=== PATIENT | male | born 1955 | race Caucasian/White ===

== ENCOUNTER 2017-09-25 19:03 | Emergency (ER) | payer BC ==
[~2017-09-25] VITALS: Ht 177.8 cm; Wt 85.5 kg
[~2017-09-25 19:03] MED LIST: AMLO-114 PO; ATOR10TA82 PO; HYDC25 PO; LISI-725 PO; METO50TA8 PO
[2017-09-25 19:06] VITALS: TEMP 36.4; Ht 177.8 cm; Wt 85.5 kg
[2017-09-25] MEDS ORDERED: SODIUM CHLORIDE 0.9% 1000ML 1,000 ML IV STA (20:05)
--- NOTE | 2017-09-25 20:11 | EMERGENCY ROOM VISIT NOTE ---
History Report prepared by Minoo: Rasta Landrum Under the Supervision of: Dr. Tushar De Leon D.O. First contact with patient: 19:55 Chief Complaint: SYNCOPE (NEAR SYNCOPE) Stated Complaint: DIZZY, BLACK OUT Nursing Triage Summary: Patient was laying on the floor stretching before dinner when he stood up he had a near syncopal episode where everything went black and had to catch him. States he has an aortic valve replacement, had to have carotid endarterectomy in the past. Denies dizziness now. History of Present Illness The patient is a 62 year old male who presents to the Emergency Room with complaints of intermittent near syncopal episodes that occurred this evening. The patient states that he was on the floor stretching before dinner. He reports that he stood up and felt as if he was going to experience a syncopal episode. The patient states that a chair was located right near him, which caused him to sit down until his symptoms resolved. He reports that he felt flushed and was experiencing diaphoresis and nausea. The patient states that he tried to stretch on the floor for a couple of minutes later. He reports that he stood back up and experienced the same episode. The patient denies similar previous symptoms, loss of consciousness, headache, change in vision, fevers, chest pain, lower extremity weakness, shortness of breath, nausea, vomiting, diarrhea, pain with urination, and melena. The patient states that within the last couple of months Metformin was added to his list of medications. He reports that he had a bicuspid valve replacement in 2008. The patient states that he has a history of hypertension, which he takes medications for. He reports he follows up with Dr. Reese for his history of heart problems. Source of History: patient Onset: this evening Position: other (global) Quality: other (global) Timing: intermittent Modifying Factors (Worsening): other (laying down then standing up) Associated Symptoms: + diaphoresis, + nausea, No LOC, No fevers, No chest pain, No SOB, No vomiting, No diarrhea, No urinary symptoms Review of Systems See HPI for pertinent positives & negatives. A total of 10 systems reviewed and were otherwise negative. Past Medical & Surgical Medical Problems: (1) Diabetes (2) HTN (hypertension) Surgical Problems: (1) H/O bicuspid aortic valve (2) H/O carotid endarterectomy Family History Patient reports no known family medical history. Social History Smoking Status: Never Smoker Marital Status: Housing Status: lives with significant other Current/Historical Medications Scheduled Aspirin (Aspirin Ec), 81 MG PO DAILY Clopidogrel (Plavix), 75 MG PO DAILY Coenzyme Q10 (Ubidecarenone) (Co Q-10), 150 MG PO DAILY Empagliflozin (Jardiance), 1 TAB PO DAILY Ezetimibe (Zetia), 10 MG PO DAILY Fish Oil ([place]-3), 1 CAP PO DAILY Lisinopril (Zestril), 20 MG PO DAILY Metformin Hcl (Glucophage), 1,000 MG PO BID Metoprolol Succ (Toprol Xl) (Toprol-Xl), 0.5 TAB PO BID Multivitamin (Multivitamin), 1 TAB PO DAILY Rosuvastatin Calcium (Crestor), 40 MG PO DAILY Allergies Coded Allergies: No Known Allergies (Unverified , 09/25/17) Physical Exam Vital Signs Date Time Temp Pulse Resp B/P (MAP) Pulse Ox O2 Delivery O2 Flow Rate FiO2 09/25/17 22:50 69 18 145/84 95 Room Air 09/25/17 20:50 79 18 137/79 96 Room Air 85 148/92 78 153/94 09/25/17 20:34 80 09/25/17 20:19 95 Room Air 09/25/17 19:06 36.4 76 16 159/89 95 Room Air Physical Exam GENERAL: Sitting up in bed, alert, well appearing, well nourished, no distress, non-toxic EYE EXAM: normal conjunctiva. PERRL and EOM's intact. OROPHARYNX: no exudate, no erythema, lips, buccal mucosa, and tongue normal and mucous membranes are moist NECK: supple, no nuchal rigidity, no adenopathy, non-tender LUNGS: Clear to auscultation. Normal chest wall mechanics HEART: no murmurs, S1 normal and S2 normal ABDOMEN: abdomen soft, non-tender, normo-active bowel sounds, no masses, no rebound or guarding. BACK: Back is symmetrical on inspection and there is no deformity, no midline tenderness, no CVA tenderness. SKIN: no rashes and no bruising UPPER EXTREMITIES: upper extremities are grossly normal. LOWER EXTREMITIES: No pitting edema. NEURO EXAM: Normal sensorium, cranial nerves II-XII intact, normal speech, no weakness of arms, no weakness of legs. No drift. Finger to nose intact. Gross sensation intact. Ambulates without difficulty. Medical Decision & Procedures ER Provider Diagnostic Interpretation: Radiology results as stated below per my review and the radiologist's interpretation: CHEST ONE VIEW PORTABLE HISTORY: 62 years-old Male EVALUATE ALTERED MENTAL STATUS/WEAKNESS acute altered mental status with weakness COMPARISON: None available TECHNIQUE: Portable AP view of the chest FINDINGS: Cardiomediastinal and hilar silhouettes are within normal limits. Atherosclerosis of the aorta. Prior median sternotomy. No pneumothorax, pleural effusion, focal airspace consolidation or overt pulmonary edema. Remote appearing fractures of the posterolateral right sixth and seventh ribs. Moderate left and severe right shoulder degenerative changes. IMPRESSION: No acute process. The above report was generated using voice recognition software. It may contain grammatical, syntax or spelling errors. Electronically signed by: Horacio Puentes M.D. 09/25/2017 8:51 PM Dictated Date/Time: 09/25/2017 8:50 PM Laboratory Results 09/25/17 20:28 Red Blood Count 4.76, Mean Corpuscular Volume 87.2, Mean Corpuscular Hemoglobin 31.1, Mean Corpuscular Hemoglobin Concent 35.7, Mean Platelet Volume 10.2, Neutrophils (%) (Auto) 64.2, Lymphocytes (%) (Auto) 23.0, Monocytes (%) (Auto) 10.3, Eosinophils (%) (Auto) 1.7, Basophils (%) (Auto) 0.6, Neutrophils # (Auto ) 3.43, Lymphocytes # (Auto) 1.23, Monocytes # (Auto) 0.55, Eosinophils # (Auto ) 0.09, Basophils # (Auto) 0.03 09/25/17 20:28 Test 09/25/17 20:28 09/25/17 20:47 09/25/17 21:30 White Blood Count 5.34 K/uL (4.8-10.8) Red Blood Count 4.76 M/uL (4.7-6.1) Hemoglobin 14.8 g/dL (14.0-18.0) Hematocrit 41.5 % (42-52) Mean Corpuscular Volume 87.2 fL (80-100) Mean Corpuscular Hemoglobin 31.1 pg (25-34) Mean Corpuscular Hemoglobin Concent 35.7 g/dl (32-36) Platelet Count 146 K/uL (130-400) Mean Platelet Volume 10.2 fL (7.4-10.4) Neutrophils (%) (Auto) 64.2 % Lymphocytes (%) (Auto) 23.0 % Monocytes (%) (Auto) 10.3 % Eosinophils (%) (Auto) 1.7 % Basophils (%) (Auto) 0.6 % Neutrophils # (Auto) 3.43 K/uL (1.4-6.5) Lymphocytes # (Auto) 1.23 K/uL (1.2-3.4) Monocytes # (Auto) 0.55 K/uL (0.11-0.59) Eosinophils # (Auto) 0.09 K/uL (0-0.5) Basophils # (Auto) 0.03 K/uL (0-0.2) RDW Standard Deviation 43.5 fL (36.4-46.3) RDW Coefficient of Variation 13.8 % (11.5-14.5) Immature Granulocyte % (Auto) 0.2 % Immature Granulocyte # (Auto) 0.01 K/uL (0.00-0.02) Prothrombin Time 10.4 SECONDS (9.0-12.0) Prothromb Time International Ratio 1.0 (0.9-1.1) Activated Partial Thromboplast Time 26.1 SECONDS (21.0-31.0) Partial Thromboplastin Ratio 1.0 D-Dimer 370 ug/L FEU (0-500) Anion Gap 9.0 mmol/L (3-11) Est Creatinine Clear Calc Drug Dose 84.3 ml/min Estimated GFR () 99.7 Estimated GFR (Non- 86.1 BUN/Creatinine Ratio 20.5 (10-20) Calcium Level 9.5 mg/dl (8.5-10.1) Total Bilirubin 0.7 mg/dl (0.2-1) Direct Bilirubin 0.2 mg/dl (0-0.2) Aspartate Amino Transf (AST/SGOT) 31 U/L (15-37) Alanine Aminotransferase (ALT/SGPT) 50 U/L (12-78) Alkaline Phosphatase 73 U/L (45-117) Troponin I < 0.015 ng/ml (0-0.045) Total Protein 8.0 gm/dl (6.4-8.2) Albumin 4.2 gm/dl (3.4-5.0) Thyroid Stimulating Hormone (TSH) 2.060 uIu/ml (0.300-4.500) Bedside Glucose 109 mg/dl (70-99) Urine Color YELLOW Urine Appearance CLEAR (CLEAR) Urine pH 5.0 (4.5-7.5) Urine Specific [place] 1.030 (1.000-1.030) Urine Protein NEG (NEG) Urine Glucose (UA) 3+ (NEG) Urine Ketones NEG (NEG) Urine Occult Blood NEG (NEG) Urine Nitrite NEG (NEG) Urine Bilirubin NEG (NEG) Urine Urobilinogen NEG (NEG) Urine Leukocyte Esterase NEG (NEG) Laboratory results per my review. Medications Administered Medications (Trade) Dose Ordered Sig/Jason Route Start Time Stop Time Status Last Admin Dose Admin Sodium Chloride 1,000 ml @ 999 mls/hr Q1H1M STAT IV 09/25/17 20:05 09/25/17 21:05 DC 09/25/17 20:53 999 MLS/HR ECG Per My Interpretation Indication: syncope Rate (beats per minute): 79 Rhythm: sinus rhythm Findings: PVC, RBBB, other (Normal axis) Comparison ECG Date: no prior available ED Course ED COURSE: Vital signs were reviewed and showed normal. The patients medical record was reviewed The above diagnostic studies were performed and reviewed. ED treatments and interventions as stated above. 1955: The patient was evaluated in room C01A. A complete history and physical examination was performed. 2004: Ordered Sodium Chloride 1000 ml @ 999 mls/hr IV. 2225: I reevaluated the patient and updated him on his results. 2238: I discussed the patients case with Dr. Roman. [facility] Hospitalist. He reports the patient is able to go home and follow up. 2245: Upon reevaluation, the patient is doing well. I discussed my findings with the patient and he understands and agrees with the treatment plan. Based on the patients age, coexisting illnesses, exam and lab findings the decision to treat as an outpatient was made. The patient remained stable while under my care. The patient appeared well at the time of discharge. The patient will be evaluated for further management. Medical Decision Differential diagnosis includes etiologies such as vasovagal event, infection, hypoglycemia, electrolyte abnormalities, cardiac sources, intracerebral event, toxicologic, neurologic, as well as others were entertained. Patient is a 62-year-old male who presents the ER as he was lying flat on the floor stretching. When he went to stand up he nearly blacked out. He does have a history of an aortic valve replacement. He has no other complaints. Denies any chest pain or shortness of breath. CBC along with BMP, LFTs, bilirubin and troponin were negative. TSH was normal. UA was unremarkable. D- dimer was normal. Patient did note he was flushed and sweaty when he almost passed out. Shortly thereafter he repeated the same steps and almost passed out again. EKG was unremarkable. Chest x-ray unremarkable as well. I discussed my findings with cardiology. They recommend following up as an outpatient. I do believe he is stable enough to be discharged. He is otherwise completely will back to baseline. No new medications. Patient was given fluids and discharged follow-up with PCP. Discussed with Pt concerning signs and symptoms to watch out for. Pt was instructed to follow up with their PCP and discussed with the patient their option to return to the ED at anytime for persistent or worsening symptoms. The appropriate anticipatory guidance and out-patient management, including indications for return to the emergency department, were explained at length to the patient and understood. Medication Reconcilliation Current Medication List: was personally reviewed by me Blood Pressure Screening Patient's blood pressure: Normal blood pressure Consults Time Called: 2208 Consulting Physician: Dr. Roman, [facility] Cardiology Returned Call: [phone] I discussed the patients case with Dr. Roman. [facility] Hospitalist. He reports the patient is able to go home and follow up. Impression Primary Impression: Near syncope Scribe Attestation The scribe's documentation has been prepared under my direction and personally reviewed by me in its entirety. I confirm that the note above accurately reflects all work, treatment, procedures, and medical decision making performed by me. Departure Information Dispostion Home / Self-Care Referrals No Doctor, Assigned (PCP) Rob Reese M.D. Forms HOME CARE DOCUMENTATION FORM, IMPORTANT VISIT INFORMATION Patient Instructions ED Near Syncope Unkn, My [facility] Additional Instructions Please follow up with your primary care doctor with in the next 24 hours. Any worsening of your symptoms, please return to the ED immediately. This includes any fevers greater than 100.4, worsening pain, chest pain, shortness breath, persistent nausea, vomiting, unable to eat or drink, or any other concerning signs or symptoms from your standpoint. 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 Please refrain from laying on the floor and changing positions quickly.
[2017-09-25 20:19] VITALS: O2SAT 95
--- NOTE | 2017-09-25 20:53 | DIAGNOSTIC IMAGING REPORT ---
CHEST ONE VIEW PORTABLE HISTORY: 62 years-old Male EVALUATE ALTERED MENTAL STATUS/WEAKNESS acute altered mental status with weakness COMPARISON: None available TECHNIQUE: Portable AP view of the chest FINDINGS: Cardiomediastinal and hilar silhouettes are within normal limits. Atherosclerosis of the aorta. Prior median sternotomy. No pneumothorax, pleural effusion, focal airspace consolidation or overt pulmonary edema. Remote appearing fractures of the posterolateral right sixth and seventh ribs. Moderate left and severe right shoulder degenerative changes. IMPRESSION: No acute process. The above report was generated using voice recognition software. It may contain grammatical, syntax or spelling errors. Electronically signed by: Horacio Puentes M.D. 09/25/2017 8:51 PM Dictated Date/Time: 09/25/2017 8:50 PM
[2017-09-25 20:55] LABS: BASO % 0.6 %; BASO ABS # 0.03 K/uL (0-0.2); EOS % 1.7 %; EOS ABS # 0.09 K/uL (0-0.5); HEMATOCRIT 41.5 % (42-52); HEMOGLOBIN 14.8 g/dL (14.0-18.0); IG# 0.01 K/uL (0.00-0.02); LYMPH ABS # 1.23 K/uL (1.2-3.4); MEAN CELL VOLUME 87.2 fL (80-100); MEAN CORPUSCULAR HEMOGLOBIN 31.1 pg (25-34); MEAN CORPUSCULAR HGB CONC 35.7 g/dl (32-36); MEAN PLATELET VOLUME 10.2 fL (7.4-10.4); MONO % 10.3 %; MONO ABS # 0.55 K/uL (0.11-0.59); NEUT % 64.2 %; NEUT ABS # 3.43 K/uL (1.4-6.5); PLATELET COUNT 146 K/uL (130-400); RED CELL DISTRIBUTION WIDTH CV 13.8 % (11.5-14.5); RED CELL DISTRIBUTION WIDTH SD 43.5 fL (36.4-46.3); WHITE BLOOD COUNT 5.34 K/uL (4.8-10.8)
[2017-09-25] MEDS ORDERED: CLOP1TAB15 PO (21:00)
[2017-09-25] MEDS ORDERED: MULT-506 PO (21:00)
[2017-09-25] MEDS ORDERED: ASPI81TA28 PO (21:00)
[2017-09-25] MEDS ORDERED: LISI-725 PO (21:00)
[2017-09-25] MEDS ORDERED: METO50TA8 PO (21:00)
[2017-09-25] MEDS ORDERED: EMPA1TAB PO (21:00)
[2017-09-25] MEDS ORDERED: COEN150C PO (21:00)
[2017-09-25] MEDS ORDERED: OMEG10007 PO (21:00)
[2017-09-25] MEDS ORDERED: EZET10TA63 PO (21:00)
[2017-09-25] MEDS ORDERED: ROSU40TA PO (21:00)
[2017-09-25] MEDS ORDERED: GLC/500 PO (21:00)
[2017-09-25 21:01] LABS: PTT PATIENT 26.1 SECONDS (21.0-31.0)
[2017-09-25 21:11] LABS: ALBUMIN 4.2 gm/dl (3.4-5.0); ALT/SGPT 50 U/L (12-78); BLOOD UREA NITROGEN 20 mg/dl (7-18); CALCIUM 9.5 mg/dl (8.5-10.1); CARBON DIOXIDE 24 mmol/L (21-32); CREATININE 0.95 mg/dl (0.60-1.40); GLUCOSE 98 mg/dl (70-99); POTASSIUM 3.7 mmol/L (3.5-5.1); SODIUM 138 mmol/L (136-145)
[2017-09-25 21:21] LABS: ALKALINE PHOSPHATASE 73 U/L (45-117); AST/SGOT 31 U/L (15-37)
[2017-09-25 22:50] VITALS: BP 145/84; PULSE 69; O2SAT 95
== END 2017-09-25 23:10 | disposition home or self-care (01) ==
LOC: C.EDB 19:04 → C.EDC 23:10
DX: R61 Generalized hyperhidrosis (principal); R11.0 Nausea; E11.9 Type 2 diabetes mellitus without complications; I10 Essential (primary) hypertension; Z79.82 Long term (current) use of aspirin; Z79.84 Long term (current) use of oral hypoglycemic drugs; Z95.2 Presence of prosthetic heart valve; R55 Syncope and collapse

== ENCOUNTER 2022-06-29 22:54 | Observation (INO) ==
--- NOTE | 2022-06-29 23:22 | Emergency Department Note ---
Impression & Plan Facial paresthesia, Paresthesia of left arm, Left-sided chest pain, Elevated d- dimer ED Provider Note Name: FOUZIA DEJESUS Age: 67 Sex: M Arrives Via: Walk-In Informant: Patient ED Provider: Terell Garcia MD Chief Complaint: Chest pain Impression: As per impressions above Medical Decision Making: Pleasant 67-year-old gentleman with a history of hypertension, diabetes, TIA, aortic valve repair, CEA arrives for evaluation of 2 days of not feeling right. Increasing left chest pain following plowing this morning. He also notes that he is been having left facial tingling radiating down into his left arm. He has no neurologic deficits on examination his NIH score is 0. No clear timeline specific of last known well and without other neuro findings I do not feel he is a TNKase candidate and is clearly not a large vessel occlusion. He does have left-sided chest pain however an EKG is all right it seems more musculoskeletal as it is worse with movement. Initial troponin is within normal limits. Chest x-ray looks all right. A D-dimer was also obtained given the was having unusual symptoms. D-dimer is mildly elevated thus a CTA was obtained. He had a CT head that is negative. He had a CTA of the chest that is negative as well. Otherwise labs and work-up are unremarkable. He still has some mild tingling of the left face and down his arm. With his history he will need a further work-up including stroke eval. I do not think that he needs heparinization at this time. Hospitalist was consulted for further management. Patient took aspirin prior to arrival. Prior Medical Record and Triage/Nursing Notes reviewed by Me Additional history obtained from chart Differentials:Cardiac ischemia, aortic dissection, pulmonary embolism, pneumothorax, pneumonia, pericarditis, myocarditis, esophageal rupture, GERD, cholecystitis, pancreatitis, musculoskeletal, as well as other pathologies. Vital Signs: reviewed and remarkable for HTN Labs:Reviewed and remarkable for elevated dimer Imaging:X ray results are stated below per my interpretation: Chest: 1 view: No infiltrate, no effusion, normal cardiac border. CT angio of the chest no acute findings as per radiology. CT head no acute findings as per radiology EKG:Per My Interpretation: Indication Chest Pain: NSR 79 bpm, qtc 454. No Ectopy. No Ischemia. Compared to EKG 01/01/22, no significant changes. Cardiac/Tele Monitoring: Cardiac Monitoring: An Order was placed for continuous cardiac monitoring. The monitor shows a rate of 70 with a normal sinus rhythm. Consults:Dr Balaji HEAD Hospitalist Plan: Disposition:Hospitalization. Condition: Good History of Present Illness:67-year-old gentleman arrives for evaluation of chest pain. Patient notes last 2 days he just has not quite felt himself and a bit more tired than usual. He then was plowing snow all morning today and states he just was not feeling normal. He attributed it to just being tired. This evening he started developing pressure-like pain over the left chest. This was associated with increasing tingling over the left face and down to his left arm into the forearm. He denies any pressure or pain in his face or arm. Denies any nausea, vomiting, syncope, weakness, slurred speech, shortness of breath, abdominal pain, back pain, fevers, chills or any other concerning signs or symptoms. He is not having any back pain or tearing pain. He has had no recent swelling of his legs or calf pain. No prolonged car trips. Denies a history of CAD though his father did have a heart attack. Patient's never had any cardiac stenting but has had CEA and open heart surg for aortic valve repair. Patient took 324 mg aspirin x2 about 1 hour ago. He notes that his symptoms have mostly resolved by the time he gets here. Nothing seemed to make better or worse. ROS: See above HPI for pertinent positives & negatives. A total of 10 systems reviewed and were otherwise negative. Past Medical History:Diabetes, hypertension, dyslipidemia, carotid narrowing, TIA Past Surgical History:Open heart surgery for aortic repair, carotid endarterectomy Family History:Father had AL, see below Social History:See Below Home Medications:See Below Allergies:nkda Vitals:Blood Pressure: 194/101, Pulse 83, RR 20, T 36.5C, O2 96% on RA Physical Exam: GENERAL: Patient is anxious appearing and in minimal distress. EYES: No scleral icterus, unremarkable pupils. ENT: Mucous membranes moist, no nasal congestion. NECK: No masses appreciated, nomeningismus, trachea is midline. RESPIRATORY: No dyspnea. Clear to auscultation and equal bilaterally. No wheeze, no rhonchi. CARDIOVASCULAR: Regular rate and rhythm.No murmurs, rubs, gallops appreciated. GASTROINTESTINAL: Abdomen soft, non-tender, no peritonitis.Bowel sounds positive.No masses appreciated. BACK: No midline tenderness, no CVA tenderness EXTREMITIES: Normal motion all extremities, no cyanosis, no edema. NEUROLOGIC: Alert and oriented, no acute motor or sensory deficits, no focal wea kness, cranial nerves grossly intact. SKIN: No rash, no jaundice, no diaphoresis. PSYCH: Appropriate GCS: 15 ED Course: Times/Reassessments: improving HR, stable Terell Garcia MD Past Med/Surg History Medical History Diabetes Dyslipidemia HTN (hypertension) Surgical History H/O aortic valve replacement Social History Smoking Status: Never smoker Hx Alcohol Use: Yes Hx Substance Use: No Preferred Language: Welsh Communication Ability: Effective Health Care Manager Required: No Beliefs That Will Affect Care: None Current Living Situation: Spouse Feels Safe at Home: Yes Safety Concerns: Feels Safe At This Time Allergies Allergies Allergy/AdvReac Type Severity Reaction Status Date / Time bee venom protein (honey bee) Allergy Severe Anaphylaxis Verified 06/30/22 00:20 shellfish derived Allergy Severe Gastrointestinal Verified 06/30/22 00:20 Upset Home Meds Home Medications Medication Instructions Recorded Confirmed clopidogrel 75 mg tablet 75 mg PO DAILY #0 tabs 09/25/17 06/30/22 ezetimibe 10 mg tablet 10 mg PO DAILY #0 tabs 09/25/17 06/30/22 lisinopril 20 mg tablet 20 mg PO BID #0 tabs 09/25/17 06/30/22 metformin 500 mg tablet 1,000 mg PO BID #0 tabs 09/25/17 06/30/22 multivitamin 1 tab PO DAILY #0 tabs 09/25/17 06/30/22 rosuvastatin 20 mg tablet 20 mg PO DAILY #0 tabs 09/25/17 06/30/22 amlodipine 5 mg tablet 5 mg PO BID 01/01/22 06/30/22 metoprolol tartrate 50 mg tablet 50 mg PO BID 01/01/22 06/30/22 aspirin 81 mg tablet,delayed 81 mg PO DAILY 06/30/22 06/30/22 release omega-3s 300 xd-kqe-fuw-other 1 cap PO DAILY 06/30/22 06/30/22 [id number] oil 1,000 mg capsule ([employer]-3 Fish Oil) Results & Data (ED) Vital Signs Vital Signs - 24 hr 06/29/22 22:56 06/30/22 02:54 Temperature 36.5 C Temperature Source Temporal Artery Scan Pulse Rate 83 Pulse Rate [Left] 68 Respiratory Rate 20 16 Respiratory Effort / Characteristics Non-Labored Spontaneous Non-Labored Respiratory Depth Normal Normal Blood Pressure 194/101 H Blood Pressure [Right Arm] 178/99 H Blood Pressure Mean 132 Blood Pressure Mean [Right Arm] 125 Pulse Oximetry 96 94 Oxygen Delivery Method Room Air Sepsis New/Unexplained Change in Mental Status N/A Sepsis Action Taken by Nursing No Action Required Laboratory Data Result diagrams: 06/29/22 23:10 06/29/22 23:10 Lab Results 06/29/22 06/29/22 06/29/22 Range/Units 23:10 23:10 23:10 WBC 11.42 H (4.8-10.8) K/ul RBC 4.81 (4.63-6.08) M/uL Hgb 15.0 (14.0-18.0) g/dl Hct 42.5 (40.1-51.0) % MCV 88.4 (80.0-100.0) fL MCH 31.2 (25.0-34.0) pg MCHC 35.3 (32.0-36.0) g/dL RDW Std Deviation 41.8 (36.4-46.3) fL RDW Coeff of Daryn 12.9 (11.5-14.5) % Plt Count 157 (130-400) K/uL MPV 10.0 (9.4-12.4) fL Immature Gran % (Auto) 0.4 % Neut % (Auto) 74.8 % Lymph % (Auto) 15.2 % [place] % (Auto) 7.5 % Eos % (Auto) 1.7 % Baso % (Auto) 0.4 % Neut # (Auto) 8.54 H (1.4-6.5) K/uL Lymph # (Auto) 1.74 (1.2-3.4) K/uL [place] # (Auto) 0.86 H (0.24-0.82) K/uL Eos # (Auto) 0.19 (0-0.50) K/uL Baso # (Auto) 0.05 (0-0.2) K/uL Immature Gran # (Auto) 0.04 H (0.00-0.02) K/uL D-Dimer 550 H* (0-500) ug/L FEU Sodium 138 (136-145) mmol/L Potassium 4.2 (3.5-5.1) mmol/L Chloride 104 (98-107) mmol/L Carbon Dioxide 26 (21-32) mmol/L Anion Gap 8 (3-11) BUN 27 H (6-23) mg/dl Creatinine 1.05 (0.6-1.4) mg/dl Est Cr Clr Drug Dosing 78.9 ml/min Est GFR ( Amer) 85.3 ml/min Est GFR (Non-Af Amer) 73.6 ml/min BUN/Creatinine Ratio 25.7 H (10-20) Glucose 106 H (70-99(Fasting)) mg/dl Calcium 9.5 (8.5-10.1) mg/dl Magnesium 2.0 (1.7-2.4) mg/dl Total Bilirubin 0.5 (0.2-1.0) mg/dl Direct Bilirubin 0.1 (0-0.2) mg/dl AST 22 (13-39) U/L ALT 32 (7-52) U/L Alkaline Phosphatase 71 (34-104) U/L Troponin I High Sens 9.3 (0-20) pg/ml Total Protein 7.8 (6.0-8.3) gm/dl Albumin 4.6 (3.4-5.0) gm/dl Administered Medications Discontinued Medications Sodium Chloride (Nss) 500 mls @ 999 mls/hr IV .Q31M ONE Stop: 06/30/22 01:06 Last Admin: 06/30/22 07:03 Dose: Not Given Documented By: ANDREA Ioversol (Optiray 320 500ml) 115 ml IV ONCE ONE Stop: 06/30/22 01:08 Last Admin: 06/30/22 01:08 Dose: 115 ml Documented By: [facility] Imaging Data Radiologist's Impression: Head CT 06/29/22 23:18 CT SCAN OF THE BRAIN WITHOUT IV CONTRAST CLINICAL HISTORY: Transient ischemic attack. Left-sided facial numbness. Dizziness. COMPARISON STUDY: CT of the brain dated 11/26/2021. TECHNIQUE: Unenhanced axial CT scan of the brain is performed from the vertex to the skull base. A dose lowering technique was utilized adhering to the principles of ALARA. CT DOSE: 614.27 mGy.cm FINDINGS: Brain parenchyma: A focus of high right parietal encephalomalacia is unchanged and consistent with a remote insult. There is age-related involutional change noting mild subcortical and periventricular microangiopathic disease. There is no hemorrhage, mass effect, or evidence of acute territorial ischemia by CT criteria. Rojas-white matter differentiation is preserved. No extra-axial fluid collection is seen. Ventricles, sulci, cisterns: Prominent secondary to involutional change. Intracranial vasculature: There is atherosclerotic calcification of the cavernous carotid vertebral arteries. Calvarium: Unremarkable. Soft tissues: A 2 cm lipoma is noted in the right suboccipital musculature. Sinuses and mastoids: The visualized paranasal sinuses are clear. The mastoid air cells are well pneumatized. Orbits: The bony orbits are grossly intact. There are bilateral ocular lens implants. IMPRESSION: There is no hemorrhage, mass effect, or evidence of acute ter ritorial ischemia by CT criteria. ACT 112: Negative or not required by law. Electronically signed by: Chapito Webb M.D. 06/30/2022 12:19 AM Chest X-Ray 06/29/22 23:19 SINGLE VIEW CHEST CLINICAL HISTORY: Left-sided chest pain. FINDINGS: An AP, portable, upright chest radiograph is compared to study dated 09/25/2017. The patient is status post midline sternotomy. The heart is enlarged noting atherosclerotic calcification of the thoracic aorta. The pulmonary vasculature is noncongested. There is mild bibasilar scarring/atelectasis. The lungs and pleural spaces are otherwise clear. No pneumothorax is seen. The skeletal structures are osteopenic. There are healed right-sided rib fractures. Advanced arthritic change is noted in the shoulders. IMPRESSION: Mild cardiomegaly with no active disease in the chest. ACT 112: Negative or not required by law. Electronically signed by: Chapito Webb M.D. 06/30/2022 12:26 AM Discharge Plan Visit Data Chief Complaint: Cardiac Assessment Stated Complaint: CHEST DISCOMFORT, TINGLING FACE ED Provider: Terell Garcia Discharge Problem: Facial paresthesia, Paresthesia of left arm, Left-sided chest pain, Elevated d- dimer Patient Disposition: Admitted As Inpatient Discharge Instructions Interventions: ED Discharge Assessment Last Done: 06/30/22 05:47
[2022-06-30] LABS: Basophils # (auto) 0.05 K/uL (0-0.2); Basophils % (auto) 0.4 %; Eosinophils # (auto) 0.19 K/uL (0-0.50); Eosinophils % (auto) 1.7 %; Hematocrit (blood only) 42.5 % (40.1-51.0); Immature Granulocytes # (auto) 0.04 K/uL (0.00-0.02); Immature Granulocytes % (auto) 0.4 %; Lymphocytes # (auto) 1.74 K/uL (1.2-3.4); Lymphocytes % (auto) 15.2 %; Mean Corpuscular Hemoglobin 31.2 pg (25.0-34.0); Mean Corpuscular Hgb Conc 35.3 g/dL (32.0-36.0); Mean Corpuscular Volume 88.4 fL (80.0-100.0); Monocytes # (auto) 0.86 K/uL (0.24-0.82); Monocytes % (auto) 7.5 %; Neutrophils # (auto) 8.54 K/uL (1.4-6.5); Neutrophils % (auto) 74.8 %; Platelet Count 157 K/uL (130-400); RDW Coefficient of Variation 12.9 % (11.5-14.5); RDW Standard Deviation 41.8 fL (36.4-46.3); Red Blood Count 4.81 M/uL (4.63-6.08); White Blood Count 11.42 K/ul (4.8-10.8)
[2022-06-30 00:17] LABS: D Dimer 550 ug/L FEU (0-500)
--- NOTE | 2022-06-30 00:21 | CT Scan Report ---
CT SCAN OF THE BRAIN WITHOUT IV CONTRAST CLINICAL HISTORY: Transient ischemic attack. Left-sided facial numbness. Dizziness. COMPARISON STUDY: CT of the brain dated 11/26/2021. TECHNIQUE: Unenhanced axial CT scan of the brain is performed from the vertex to the skull base. A do se lowering technique was utilized adhering to the principles of ALARA. CT DOSE: 614.27 mGy.cm FINDINGS: Brain parenchyma: A focus of high right parietal encephalomalacia is unchanged and consistent with a remote insult. There is age-related involutional change noting mild subcortical and periventricular m icroangiopathic disease. There is no hemorrhage, mass effect, or evidence of acute territorial ischem ia by CT criteria. Rojas-white matter differentiation is preserved. No extra-axial fluid collection is seen. Ventricles, sulci, cisterns: Prominent secondary to involutional change. Intracranial vasculature: There is atherosclerotic calcification of the cavernous carotid vertebral a rteries. Calvarium: Unremarkable. Soft tissues: A 2 cm lipoma is noted in the right suboccipital musculature. Sinuses and mastoids: The visualized paranasal sinuses are clear. The mastoid air cells are well pneu matized. Orbits: The bony orbits are grossly intact. There are bilateral ocular lens implants. IMPRESSION: There is no hemorrhage, mass effect, or evidence of acute territorial ischemia by CT jessica bryant. ACT 112: Negative or not required by law. Electronically signed by: Chapito Webb M.D. 06/30/2022 12:19 AM
[2022-06-30 00:26] LABS: Troponin I High Sensitivity 9.3 pg/ml (0-20)
[2022-06-30 00:27] LABS: Albumin Level 4.6 gm/dl (3.4-5.0); BUN Creatinine Ratio 25.7 (10-20); Bilirubin Direct 0.1 mg/dl (0-0.2); Bilirubin,Total 0.5 mg/dl (0.2-1.0); Calcium 9.5 mg/dl (8.5-10.1); Creatinine Clr Calc Pharmacy 78.9 ml/min; Est GFR (African American) 85.3 ml/min; Est GFR (Non-African American) 73.6 ml/min; Potassium 4.2 mmol/L (3.5-5.1); Total Protein 7.8 gm/dl (6.0-8.3)
--- NOTE | 2022-06-30 00:27 | XRay Report ---
SINGLE VIEW CHEST CLINICAL HISTORY: Left-sided chest pain. FINDINGS: An AP, portable, upright chest radiograph is compared to study dated 09/25/2017. The patient is status post midline sternotomy. The heart is enlarged noting atherosclerotic calcification of the thoracic aorta. The pulmonary vasculature is noncongested. There is mild bibasilar scarring/atelecta sis. The lungs and pleural spaces are otherwise clear. No pneumothorax is seen. The skeletal structur es are osteopenic. There are healed right-sided rib fractures. Advanced arthritic change is noted in the shoulders. IMPRESSION: Mild cardiomegaly with no active disease in the chest. ACT 112: Negative or not required by law. Electronically signed by: Chapito Webb M.D. 06/30/2022 12:26 AM
[2022-06-30] MEDS ORDERED: SODIUM CHLORIDE 0.9% 500 ML IV ONE (00:36)
[2022-06-30] MEDS ORDERED: OPTIRAY 320 500ml IV ONE (01:07)
--- NOTE | 2022-06-30 03:42 | History & Physical Report ---
Date of Service June 30, 2022 Assessment & Plan (1) TIA (transient ischemic attack): Plan: Past history TIA Transient left-sided numbness Hypertension possibly elevated secondary to above Chest pain possibly from elevated BP Doubt ACS given history hx nonocclusive CAD hx PVD status post surgery bicuspid aortic valve status post bioprosthetic AVR hyperlipidemia, on statin Rx DM2 on oral medications, well-controlled as of recent hemoglobin A1c of 6.2 last August 2021 DM2 on oral medications sarcoidosis as per records OBS PCU given elevated BP and chest pain complaints Continue antiplatelet Rx for secondary stroke prevention MRI, TTE, carotid Dopplers for TIA work-up Permissive hypertension until acute stroke ruled out Neurology consult pending MRI results Follow troponin Cardiology consult Re: Chest pain, history nonocclusive CAD (Patient known to [facility].) Update lipid profile and hemoglobin A1c Basal bolus insulin, ISS BG goal 1 10-1 40, carb count coverage, update hemoglobin A1c DVT prophylaxis per Lovenox subcu Full code Text document was generated using [employer] voice recognition software. It may contain grammatical or spelling errors. Kindly contact undersigned for clarification of any documentation item in question. History of Present Illness Chief Complaint: Transient chest pain, left-sided numbness Primary Care Provider: Dr. Benavidez History obtained from patient and records. Medical history significant for nonocclusive CAD, PVD status post surgery, history TIA, bicuspid aortic valve status post bioprosthetic AVR, hypertension, hyperlipidemia, DM2 on oral medications, sarcoidosis. Patient not feeling well the last few days. Patient was watching television last night when he experienced achy transient left-sided chest pain without radiation and no other symptoms. Patient later noted tingling numbness on the face and left arm. More profound numbness on the left side from TIA attack in 2007 prompting left carotid endarterectomy at [facility] [place]. Patient denies headache symptoms. No unusual neck pain. Patient compliant with medications. No unusual stress except for plowing snow yesterday. Patient does not take blood pressure at home. Patient took extra aspirin at home prior to ER evaluation. Highest SBP at the ER 190s. Patient currently comfortable. 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 Allergies Allergy/AdvReac Type Severity Reaction Status Date / Time bee venom protein (honey bee) Allergy Severe Anaphylaxis Verified 06/30/22 00:20 shellfish derived Allergy Severe Gastrointestinal Verified 06/30/22 00:20 Upset Home Medications Medication Instructions Recorded Confirmed Type clopidogrel 75 mg tablet 75 mg PO DAILY #0 tabs 09/25/17 06/30/22 History ezetimibe 10 mg tablet 10 mg PO DAILY #0 tabs 09/25/17 06/30/22 History lisinopril 20 mg tablet 20 mg PO BID #0 tabs 09/25/17 06/30/22 History metformin 500 mg tablet 1,000 mg PO BID #0 tabs 09/25/17 06/30/22 History multivitamin 1 tab PO DAILY #0 tabs 09/25/17 06/30/22 History rosuvastatin 20 mg tablet 20 mg PO DAILY #0 tabs 09/25/17 06/30/22 History amlodipine 5 mg tablet 5 mg PO BID 01/01/22 06/30/22 History metoprolol tartrate 50 mg tablet 50 mg PO BID 01/01/22 06/30/22 History aspirin 81 mg tablet,delayed 81 mg PO DAILY 06/30/22 06/30/22 History release omega-3s 300 hw-imc-vcr-other 1 cap PO DAILY 06/30/22 06/30/22 History [id number] oil 1,000 mg capsule ([place]-3 Fish Oil) Past Med/Surg History Medical History Diabetes Dyslipidemia HTN (hypertension) Surgical History H/O aortic valve replacement Social History Smoking Status: Never smoker Hx Alcohol Use: Yes Hx Substance Use: No Preferred Language: Austrian Communication Ability: Effective Lookback Coordinator Required: No Beliefs That Will Affect Care: None Current Living Situation: Spouse Feels Safe at Home: Yes Safety Concerns: Feels Safe At This Time Review of Systems Review of Systems: As per HPI, all other systems reviewed and negative Physical Exam Physical Exam: GENERAL: Comfortable, pleasant, no respiratory distress SKIN: Hypopigmented patches noted noted on the upper extremities, normal color, warm HEENT: [place] palpebral conjunctivae, no ptosis, minimal upper lip asymmetry, moist buccal mucosa NECK : Supple, no tenderness CHEST : CTA, no tenderness HEART : RRR, systolic murmur over precordium ABDOMEN: Some distention, nontender EXTREMITIES : No LE swelling, no LE tenderness, no other conspicuous deformities noted NEUROLOGIC : Coherent, no facial asymmetry, minimal upper lip asymmetry, gait and stance not assessed Results & Data Results & Data ([facility]) Vital Signs (Past 12 Hours) Vital Signs Temp Pulse Resp BP Pulse Ox O2 Del Method 06/29/22 22:56 36.5 C 83 20 194/101 H 96 Room Air Laboratory Results Laboratory Results WBC 11.42 K/ul (4.8-10.8) H 06/29/22 23:10 RBC 4.81 M/uL (4.63-6.08) 06/29/22 23:10 Hgb 15.0 g/dl (14.0-18.0) 06/29/22 23:10 Hct 42.5 % (40.1-51.0) 06/29/22 23:10 MCV 88.4 fL (80.0-100.0) 06/29/22 23:10 MCH 31.2 pg (25.0-34.0) 06/29/22 23:10 MCHC 35.3 g/dL (32.0-36.0) 06/29/22 23:10 RDW Std Deviation 41.8 fL (36.4-46.3) 06/29/22 23:10 RDW Coeff of Daryn 12.9 % (11.5-14.5) 06/29/22 23:10 Plt Count 157 K/uL (130-400) 06/29/22 23:10 MPV 10.0 fL (9.4-12.4) 06/29/22 23:10 Immature Gran % (Auto) 0.4 % 06/29/22 23:10 Neut % (Auto) 74.8 % 06/29/22 23:10 Lymph % (Auto) 15.2 % 06/29/22 23:10 [place] % (Auto) 7.5 % 06/29/22 23:10 Eos % (Auto) 1.7 % 06/29/22 23:10 Baso % (Auto) 0.4 % 06/29/22 23:10 Neut # (Auto) 8.54 K/uL (1.4-6.5) H 06/29/22 23:10 Lymph # (Auto) 1.74 K/uL (1.2-3.4) 06/29/22 23:10 [place] # (Auto) 0.86 K/uL (0.24-0.82) H 06/29/22 23:10 Eos # (Auto) 0.19 K/uL (0-0.50) 06/29/22 23:10 Baso # (Auto) 0.05 K/uL (0-0.2) 06/29/22 23:10 Immature Gran # (Auto) 0.04 K/uL (0.00-0.02) H 06/29/22 23:10 D-Dimer 550 ug/L FEU (0-500) H* 06/29/22 23:10 Sodium 138 mmol/L (136-145) 06/29/22 23:10 Potassium 4.2 mmol/L (3.5-5.1) 06/29/22 23:10 Chloride 104 mmol/L (98-107) 06/29/22 23:10 Carbon Dioxide 26 mmol/L (21-32) 06/29/22 23:10 Anion Gap 8 (3-11) 06/29/22 23:10 BUN 27 mg/dl (6-23) H 06/29/22 23:10 Creatinine 1.05 mg/dl (0.6-1.4) 06/29/22 23:10 Est Cr Clr Drug Dosing 78.9 ml/min 06/29/22 23:10 Est GFR ( Amer) 85.3 ml/min 06/29/22 23:10 Est GFR (Non-Af Amer) 73.6 ml/min 06/29/22 23:10 BUN/Creatinine Ratio 25.7 (10-20) H 06/29/22 23:10 Glucose 106 mg/dl (70-99(Fasting)) H 06/29/22 23:10 Calcium 9.5 mg/dl (8.5-10.1) 06/29/22 23:10 Magnesium 2.0 mg/dl (1.7-2.4) 06/29/22 23:10 Total Bilirubin 0.5 mg/dl (0.2-1.0) 06/29/22 23:10 Direct Bilirubin 0.1 mg/dl (0-0.2) 06/29/22 23:10 AST 22 U/L (13-39) 06/29/22 23:10 ALT 32 U/L (7-52) 06/29/22 23:10 Alkaline Phosphatase 71 U/L (34-104) 06/29/22 23:10 Troponin I High Sens 9.3 pg/ml (0-20) 06/29/22 23:10 Total Protein 7.8 gm/dl (6.0-8.3) 06/29/22 23:10 Albumin 4.6 gm/dl (3.4-5.0) 06/29/22 23:[address] 06/29/22 23:18 CT SCAN OF THE BRAIN WITHOUT IV CONTRAST CLINICAL HISTORY: Transient ischemic attack. Left-sided facial numbness. Dizziness. COMPARISON STUDY: CT of the brain dated 11/26/2021. TECHNIQUE: Unenhanced axial CT scan of the brain is performed from the vertex to the skull base. A dose lowering technique was utilized adhering to the principles of ALARA. CT DOSE: 614.27 mGy.cm FINDINGS: Brain parenchyma: A focus of high right parietal encephalomalacia is unchanged and consistent with a remote insult. There is age-related involutional change noting mild subcortical and periventricular microangiopathic disease. There is no hemorrhage, mass effect, or evidence of acute territorial ischemia by CT criteria. Rojas-white matter differentiation is preserved. No extra-axial fluid collection is seen. Ventricles, sulci, cisterns: Prominent secondary to involutional change. Intracranial vasculature: There is atherosclerotic calcification of the cavernous carotid vertebral arteries. Calvarium: Unremarkable. Soft tissues: A 2 cm lipoma is noted in the right suboccipital musculature. Sinuses and mastoids: The visualized paranasal sinuses are clear. The mastoid air cells are well pneumatized. Orbits: The bony orbits are grossly intact. There are bilateral ocular lens implants. IMPRESSION: There is no hemorrhage, mass effect, or evidence of acute territorial ischemia by CT criteria. ACT 112: Negative or not required by law. Electronically signed by: Chapito Webb M.D. 06/30/2022 12:19 AM Chest X-Ray 06/29/22 23:19 SINGLE VIEW CHEST CLINICAL HISTORY: Left-sided chest pain. FINDINGS: An AP, portable, upright chest radiograph is compared to study dated 09/25/2017. The patient is status post midline sternotomy. The heart is enlarged noting atherosclerotic calcification of the thoracic aorta. The pulmonary vasculature is noncongested. There is mild bibasilar scarring/atelectasis. The lungs and pleural spaces are otherwise clear. No pneumothorax is seen. The skeletal structures are osteopenic. There are healed right-sided rib fractures. Advanced arthritic change is noted in the shoulders. IMPRESSION: Mild cardiomegaly with no active disease in the chest. ACT 112: Negative or not required by law. Electronically signed by: Chapito Webb M.D. 06/30/2022 12:26 AM Diagnostic Findings EKG as per my interpretation :Rate 80, NSR, normal axis, T wave flattening lateral leads
[2022-06-30] MEDS ORDERED: CARBOHYDRATES FOR HYPOGLYCEMIA PO PRN (06:12)
[2022-06-30] MEDS ORDERED: DEXTROSE 50% 50 ML SYRINGE IV PRN (06:12)
[2022-06-30] MEDS ORDERED: ACETAMINOPHEN 325 MG TAB PO PRN (06:12)
[2022-06-30] MEDS ORDERED: GLUCOSE 10 TAB/TUBE PO PRN (06:12)
[2022-06-30] MEDS ORDERED: GLUCOSE 40% GEL 15 GM TUBE PO PRN (06:12)
[2022-06-30] MEDS ORDERED: GLUCAGON FOR INJ 1 MG VIAL SQ PRN (06:12)
[2022-06-30] MEDS ORDERED: NITROGLYCERIN SL 0.4 MG/TAB TAB SL PRN (06:12)
[2022-06-30] MEDS ORDERED: SODIUM CHLORIDE 0.9% 1000ML 1,000 ML IV SCH (08:00)
--- NOTE | 2022-06-30 08:02 | CT Scan Report ---
CT angio chest PE protocol CLINICAL HISTORY: PE TECHNIQUE: Multidetector row helical CT of the chest was performed with angiographic protocol. Paz l and sagittal reformations were obtained. Coronal and sagittal MIPS were obtained from the axial marti a set and were submitted for review. Automated dose lowering techniques and/or adjustment according to patient size were utilized for this exam. CT DOSE: 861.29 mGy.cm Comparison: None available at the time of this dictation. FINDINGS: Lungs and pleura: Normal. Heart and pericardium: Aortic valvular calcifications are seen. Vessels: No evidence of pulmonary embolism. 2 atherosclerotic disease is noted. Mediastinum and sterling: Unremarkable. Chest wall and lower neck: Unremarkable. Abdomen: Unremarkable. Bones: Degenerative changes in the thoracic spine. Patient is status post median sternotomy. IMPRESSION: No evidence of pulmonary embolism. ACT 112: Negative or not required by law. Electronically signed by: Ra Bradley M.D. 06/30/2022 8:01 AM
[2022-06-30 08:46] LABS: Chol HDL Ratio 2.4 (0-5)
[2022-06-30 08:50] LABS: Troponin I High Sensitivity 8.4 pg/ml (0-20)
[2022-06-30] MEDS: INSULIN ASPART PER UNIT SC SCH ×2 (08:53→12:42)
[2022-06-30] MEDS ORDERED: ENOXAPARIN INJ 40 MG/0.4 ML SYR SQ SCH (09:00)
[2022-06-30] MEDS ORDERED: MULTIVITAMIN TAB PO SCH (09:00)
[2022-06-30] MEDS ORDERED: ROSUVASTATIN CALCIUM 20 MG TAB PO SCH (09:00)
[2022-06-30] MEDS ORDERED: CLOPIDOGREL BISULFATE 75 MG TAB PO SCH (09:00)
[2022-06-30] MEDS ORDERED: METOPROLOL TARTRATE 25 MG TAB PO SCH (09:00)
[2022-06-30] MEDS ORDERED: INFLUENZA VACCINE HIGH DOSE PF 65+ 0.7 ML SYR IM ONE (09:00)
[2022-06-30] MEDS ORDERED: ASPIRIN 81 MG ECTAB PO SCH (09:00)
[2022-06-30] MEDS ORDERED: EZETIMIBE 10 MG TABLET PO SCH (09:00)
--- NOTE | 2022-06-30 09:17 | Cardiology Consultation ---
Date of Consultation June 30, 2022 Assessment & Plan (1) TIA (transient ischemic attack): (2) Facial paresthesia: (3) Left-sided chest pain: (4) S/P AVR: Plan I think the patient's chest pain is atypical. His high-sensitivity's troponins are negative and he has no acute EKG changes. He is maintaining sinus rhythm on telemetry. At this point I think he should have an echocardiogram since he had TIA type symptoms and an aortic valve replacement. If the echocardiogram is unremarkable then I think he can be discharged to outpatient follow-up. History of Present Illness Attending Physician: Kwame Camacho MD History of Present Illness The patient has a history as outlined below. Recently had a good friend who from myocardial infarction. He started to have atypical left-sided or left lateral chest pain and some facial numbness. He became anxious and concerned and presented to the emergency department. No acute EKG changes. Cardiac markers are negative. Neurology has evaluated him for possible TIA. The patient took 2 aspirins before presenting to the emergency department and within a few hours his discomfort was gone. He is maintaining normal sinus rhythm on the telemetry. An echocardiogram is pending. Past medical history: 1.Bicuspid aortic valve, status post aortic valve replacement, 05/23/2009, with Home-Ro 21 mm bioprosthesis. 2.Nonocclusive coronary artery disease by cardiac catheterization, May 2009. 3.Atherosclerotic carotid disease with functional occlusion of the right internal carotid artery, status post left carotid enterectomy, June 2008. 4.Hyperlipidemia. 5.Hypertension. Allergies Allergy/AdvReac Type Severity Reaction Status Date / Time bee venom protein (honey bee) Allergy Severe Anaphylaxis Verified 06/30/22 00:20 shellfish derived Allergy Severe Gastrointestinal Verified 06/30/22 00:20 Upset Home Medications Medication Instructions Recorded Confirmed Type clopidogrel 75 mg tablet 75 mg PO DAILY #0 tabs 09/25/17 06/30/22 History ezetimibe 10 mg tablet 10 mg PO DAILY #0 tabs 09/25/17 06/30/22 History lisinopril 20 mg tablet 20 mg PO BID #0 tabs 09/25/17 06/30/22 History metformin 500 mg tablet 1,000 mg PO BID #0 tabs 09/25/17 06/30/22 History multivitamin 1 tab PO DAILY #0 tabs 09/25/17 06/30/22 History rosuvastatin 20 mg tablet 20 mg PO DAILY #0 tabs 09/25/17 06/30/22 History amlodipine 5 mg tablet 5 mg PO BID 01/01/22 06/30/22 History metoprolol tartrate 50 mg tablet 50 mg PO BID 01/01/22 06/30/22 History aspirin 81 mg tablet,delayed 81 mg PO DAILY 06/30/22 06/30/22 History release omega-3s 300 pe-aaz-lqi-other 1 cap PO DAILY 06/30/22 06/30/22 History [id number] oil 1,000 mg capsule ([place]-3 Fish Oil) Patient History Medical History Diabetes Dyslipidemia HTN (hypertension) Surgical History H/O aortic valve replacement Social History Smoking Status: Never smoker Hx Alcohol Use: Yes Hx Substance Use: No Preferred Language: [place] Communication Ability: Effective 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 All other 10 point review of systems are negative. Physical Exam Physical Exam: General: no acute distress and stated age Head: normocephalic, no masses, lesions, tenderness or abnormalities Eyes: conjunctiva are pink and non-injected, sclera clear Neck: supple, no adenopathy, no bruits, normal jugular venous pulse, no hepatojugular reflux Chest: normal shape and normal respiratory effort Lungs: clear to auscultation and percussion Cardiac Exam: - regular rate & rhythm, no murmurs gallops or rubs - normal S1, normal S2 Pulses: 2(+) throughout Abdomen: abdomen soft, non-tender, no abnormal masses and no hepatosplenomegaly Musculoskeletal: no gait disturbance, no joint inflammation, no deforming arthr itis Extremities: no edema and no cyanosis Neuro: grossly normal exam Results & Data ([facility]) Vital Signs (Past 12 Hours) Vital Signs Temp Pulse Pulse Resp BP BP Pulse Ox 06/30/22 06:33 36.7 C 73 18 145/83 H 95 06/30/22 06:00 36.7 C 73 18 145/83 H 95 06/30/22 05:43 73 18 142/85 H 94 06/30/22 02:54 68 16 178/99 H 94 06/29/22 22:56 36.5 C 83 20 194/101 H 96 O2 Del Method 06/30/22 06:33 Room Air 06/30/22 06:00 Room Air 06/30/22 05:43 Room Air 06/30/22 02:54 06/29/22 22:56 Room Air Laboratory Results Laboratory Results - last 24 hr 06/29/22 06/29/22 06/29/22 23:10 23:10 23:10 WBC 11.42 H RBC 4.81 Hgb 15.0 Hct 42.5 MCV 88.4 MCH 31.2 MCHC 35.3 RDW Std Deviation 41.8 RDW Coeff of Daryn 12.9 Plt Count 157 MPV 10.0 Immature Gran % (Auto) 0.4 Neut % (Auto) 74.8 Lymph % (Auto) 15.2 [place] % (Auto) 7.5 Eos % (Auto) 1.7 Baso % (Auto) 0.4 Neut # (Auto) 8.54 H Lymph # (Auto) 1.74 [place] # (Auto) 0.86 H Eos # (Auto) 0.19 Baso # (Auto) 0.05 Immature Gran # (Auto) 0.04 H D-Dimer 550 H* Sodium 138 Potassium 4.2 Chloride 104 Carbon Dioxide 26 Anion Gap 8 BUN 27 H Creatinine 1.05 Est Cr Clr Drug Dosing 78.9 Est GFR ( Amer) 85.3 Est GFR (Non-Af Amer) 73.6 BUN/Creatinine Ratio 25.7 H Glucose 106 H POC Glucose Estimat Average Glucose Hemoglobin A1c Calcium 9.5 Magnesium 2.0 Total Bilirubin 0.5 Direct Bilirubin 0.1 AST 22 ALT 32 Alkaline Phosphatase 71 Troponin I High Sens 9.3 Total Protein 7.8 Albumin 4.6 Triglycerides Cholesterol LDL Cholesterol, Calc VLDL Cholesterol, Calc HDL Cholesterol Cholesterol/HDL Ratio SARS-CoV-2, RNA, NAAT 06/29/22 06/30/22 06/30/22 23:10 03:56 07:10 WBC RBC Hgb Hct MCV MCH MCHC RDW Std Deviation RDW Coeff of Daryn Plt Count MPV Immature Gran % (Auto) Neut % (Auto) Lymph % (Auto) [place] % (Auto) Eos % (Auto) Baso % (Auto) Neut # (Auto) Lymph # (Auto) [place] # (Auto) Eos # (Auto) Baso # (Auto) Immature Gran # (Auto) D-Dimer Sodium Potassium Chloride Carbon Dioxide Anion Gap BUN Creatinine Est Cr Clr Drug Dosing Est GFR ( Amer) Est GFR (Non-Af Amer) BUN/Creatinine Ratio Glucose POC Glucose Estimat Average Glucose Pending Hemoglobin A1c Pending Calcium Magnesium Total Bilirubin Direct Bilirubin AST ALT Alkaline Phosphatase Troponin I High Sens 8.4 Total Protein Albumin Triglycerides 61 Cholesterol 126 LDL Cholesterol, Calc 62 VLDL Cholesterol, Calc 12 HDL Cholesterol 52 Cholesterol/HDL Ratio 2.4 SARS-CoV-2, RNA, NAAT NEGATIVE 06/30/22 06/30/22 08:00 11:49 WBC RBC Hgb Hct MCV MCH MCHC RDW Std Deviation RDW Coeff of Daryn Plt Count MPV Immature Gran % (Auto) Neut % (Auto) Lymph % (Auto) [place] % (Auto) Eos % (Auto) Baso % (Auto) Neut # (Auto) Lymph # (Auto) [place] # (Auto) Eos # (Auto) Baso # (Auto) Immature Gran # (Auto) D-Dimer Sodium Potassium Chloride Carbon Dioxide Anion Gap BUN Creatinine Est Cr Clr Drug Dosing Est GFR ( Amer) Est GFR (Non-Af Amer) BUN/Creatinine Ratio Glucose POC Glucose 154 H 133 H Estimat Average Glucose Hemoglobin A1c Calcium Magnesium Total Bilirubin Direct Bilirubin AST ALT Alkaline Phosphatase Troponin I High Sens Total Protein Albumin Triglycerides Cholesterol LDL Cholesterol, Calc VLDL Cholesterol, Calc HDL Cholesterol Cholesterol/HDL Ratio SARS-CoV-2, RNA, NAAT Medications Administered Current Inpatient Medications Acetaminophen (Acetaminophen 325 Mg Tab) 650 mg PO Q4H PRN PRN Reason: Pain or Fever Stop: 07/30/22 06:11 Aspirin (Aspirin 81 Mg Ectab) 81 mg PO DAILY [facility] Stop: 07/30/22 08:59 Last Admin: 06/30/22 08:06 Dose: 81 mg Clopidogrel Bisulfate (Clopidogrel Bisulfate 75 Mg Tab) 75 mg PO DAILY JAZZ Stop: 07/30/22 08:59 Last Admin: 06/30/22 08:07 Dose: 75 mg Dextrose (Dextrose 50% 50 Ml Syringe) 25 - 50 ml IV UD PRN; Protocol PRN Reason: Hypoglycemia Protocol Stop: 07/30/22 06:11 Ezetimibe (Ezetimibe 10 Mg Tablet) 10 mg PO DAILY [facility] Stop: 07/30/22 08:59 Last Admin: 06/30/22 08:07 Dose: 10 mg Enoxaparin Sodium (Enoxaparin Inj 40 Mg/0.4 Ml Syr) 40 mg SQ QAM JAZZ Stop: 07/30/22 08:59 Last Admin: 06/30/22 08:07 Dose: 40 mg Glucagon (Glucagon For Inj 1 Mg Vial) 1 mg SQ UD PRN; Protocol PRN Reason: Hypoglycemia Protocol Stop: 07/30/22 06:11 Glucose (Glucose 40% Gel 15 Gm Tube) 15 - 30 gm PO UD PRN; Protocol PRN Reason: Hypoglycemia Protocol Stop: 07/30/22 06:11 Glucose (Glucose 10 Tab/Tube) 4 - 8 tab PO UD PRN; Protocol PRN Reason: Hypoglycemia Treatment Stop: 07/30/22 06:11 Insulin Aspart (Insulin Aspart Per Unit) 0 units SC ACHS [facility] Stop: 07/30/22 07:29 Last Admin: 06/30/22 12:42 Dose: 3 units Metoprolol Tartrate (Metoprolol Tartrate 25 Mg Tab) 25 mg PO BID [facility] Stop: 07/30/22 08:59 Last Admin: 06/30/22 08:07 Dose: 25 mg Miscellaneous (Carbohydrates For Hypoglycemia ) 15 - 30 gm PO UD PRN PRN Reason: Hypoglycemia Protocol Stop: 07/30/22 06:11 Multivitamins (Multivitamin Tab) 1 tab PO QAM [facility] Stop: 07/30/22 08:59 Last Admin: 06/30/22 08:08 Dose: 1 tab Nitroglycerin (Nitroglycerin Sl 0.4 Mg/Tab Tab) 0.4 mg SL UD PRN PRN Reason: Chest Pain Stop: 07/30/22 06:11 Rosuvastatin Calcium (Rosuvastatin Calcium 20 Mg Tab) 20 mg PO DAILY [facility] Stop: 07/30/22 08:59 Last Admin: 06/30/22 08:08 Dose: 20 mg
[2022-06-30] MEDS: LORazepam 0.5 MG TAB PO STA ×2 (10:25→10:35)
--- NOTE | 2022-06-30 11:15 | Neurology Consultation ---
Date of Consultation June 30, 2022 Assessment & Plan (1) TIA (transient ischemic attack): Plan Neurology Consultation Assessment: pt with transient left side numbness that is now resolved with HTN urgency. pt may had TIA vs cardiac related referred symptoms. pt clinically stable and doing very well. Recommendations: -i do not feel the absolute need for mri brain at this point as pt is clinically stable and does not suspect large vessel occlusion or stroke. also CT head negative. it will not change overall management. continue DAPT as before. continue statin. LDL goal less than 70 (pt on target). ok to return to normal BP now. cardiac work up per cardiology. not much to add at this point. call again if new question. tremaine Hillman MD [facility] neurology HPI: pt this morning feeling well. no more numbness. walked around without problem. BP much improved. unable to finish MRI due to claustrophobia. no other complaints. Admission/prior HPI note:Medical history significant for nonocclusive CAD, PVD status post surgery, history TIA, bicuspid aortic valve status post bioprosthetic AVR, hypertension, hyperlipidemia, DM2 on oral medications, sarcoidosis. Patient not feeling well the last few days. Patient was watching television last night when he experienced achy transient left-sided chest pain without radiation and no other symptoms. Patient later noted tingling numbness on the face and left arm. More profound numbness on the left side from TIA attack in 2007 [place] [facility] [place] Patient denies headache symptoms. No unusual neck pain. Patient compliant with medications. No unusual stress except for plowing snow yesterday. Patient does not take blood pressure at home. Patient took extra aspirin at home prior to ER evaluation. Highest SBP at the ER 190s. ROS: per HPI Med list: see chart PMHx/SHx: see chart Neuro Exam: Mental: AOx3, Fluent speech, normal comprehension, no apraxia, no neglect. CN: PERRL, Full EOM, symmetric face, tongue midline. SCM/Traps 5/5 Motor: 5/5 t/o symmetric bilaterally. Normal tone and bulk. No abnormal movements. Sens: intact to touch b/l Coord: intact DTR: toes down b/l Gait: intact Total time spent: 80 min. This includes time spent educating patient about medical condition and coordination of care (also including time spent on chart reviewing and documentation). History of Present Illness Attending Physician: Kwame Camacho MD Allergies Allergy/AdvReac Type Severity Reaction Status Date / Time bee venom protein (honey bee) Allergy Severe Anaphylaxis Verified 06/30/22 00:20 shellfish derived Allergy Severe Gastrointestinal Verified 06/30/22 00:20 Upset Home Medications Medication Instructions Recorded Confirmed Type clopidogrel 75 mg tablet 75 mg PO DAILY #0 tabs 09/25/17 06/30/22 History ezetimibe 10 mg tablet 10 mg PO DAILY #0 tabs 09/25/17 06/30/22 History lisinopril 20 mg tablet 20 mg PO BID #0 tabs 09/25/17 06/30/22 History metformin 500 mg tablet 1,000 mg PO BID #0 tabs 09/25/17 06/30/22 History multivitamin 1 tab PO DAILY #0 tabs 09/25/17 06/30/22 History rosuvastatin 20 mg tablet 20 mg PO DAILY #0 tabs 09/25/17 06/30/22 History amlodipine 5 mg tablet 5 mg PO BID 01/01/22 06/30/22 History metoprolol tartrate 50 mg tablet 50 mg PO BID 01/01/22 06/30/22 History aspirin 81 mg tablet,delayed 81 mg PO DAILY 06/30/22 06/30/22 History release omega-3s 300 vi-arv-apa-other 1 cap PO DAILY 06/30/22 06/30/22 History [id number] oil 1,000 mg capsule ([place]-3 Fish Oil) Patient History Medical History Diabetes Dyslipidemia HTN (hypertension) Surgical History H/O aortic valve replacement Social History Smoking Status: Never smoker Hx Alcohol Use: Yes Hx Substance Use: No Preferred Language: Lithuanian Communication Ability: Effective Instructional Aide Required: No Beliefs That Will Affect Care: None Current Living Situation: Spouse Feels Safe at Home: Yes Safety Concerns: Feels Safe At This Time Results & Data ([facility]) Vital Signs (Past 12 Hours) Vital Signs Temp Pulse Resp BP Pulse Ox O2 Del Method 06/30/22 06:33 36.7 C 73 18 145/83 H 95 Room Air 06/30/22 06:00 36.7 C 73 18 145/83 H 95 Room Air 06/30/22 05:43 73 18 142/85 H 94 Room Air 06/30/22 02:54 68 16 178/99 H 94
--- NOTE | 2022-06-30 11:21 | Ultrasound Report ---
ULTRASOUND OF THE CAROTID ARTERIES CLINICAL HISTORY: tia COMPARISON: None available at the time of this dictation. TECHNIQUE: Real-time, grayscale, and color Doppler sonography of the carotid arteries is performed. I mages are reviewed in the transverse and longitudinal planes. FINDINGS: The carotid arteries are patent bilaterally and demonstrate antegrade flow. There is extensive athero sclerotic plaque on the right and moderate atherosclerotic plaque on the left. Normal doppler arteria l waveforms are seen throughout. Velocity measurements are listed below. Common carotid peak systolic velocity (cm/sec): RIGHT: 75 LEFT: 112 ICA peak systolic velocity (cm/sec): RIGHT: Not seen LEFT: 115 ICA/CC peak systolic ratio: RIGHT: Occluded LEFT: 1 Antegrade flow was shown in the vertebral arteries. The external carotid arteries are patent. IMPRESSION: 1. There is occlusion of the right internal carotid artery secondary to extensive atherosclerotic di sease. Moderate left atherosclerosis without hemodynamically significant stenosis. 2. Antegrade flow is shown in the vertebral arteries. Society of Radiologists in Ultrasound consensus guidelines: Normal: ICA PSV is <125 cm/sec and no plaque or intimal thickening is visible sonographically additional criteria include ICA/CCA PSV ratio <2.0 and ICA EDV <40 cm/sec <50% ICA stenosis: ICA PSV is <125 cm/sec and plaque or intimal thickening is visible sonographically additional criteria include ICA/CCA PSV ratio <2.0 and ICA EDV <40 cm/sec 50-69% ICA stenosis: ICA PSV is 125-230 cm/sec and plaque is visible sonographically additional criteria include ICA/CCA PSV ratio of 2.0-4.0 and ICA EDV of 40-100 cm/sec ?70% ICA stenosis but less than near occlusion: ICA PSV is >230 cm/sec and visible plaque and luminal narrowing are seen at valle-scale and color Dopp ler ultrasound (the higher the Doppler parameters lie above the threshold of 230 cm/sec, the greater the likelihood of severe disease) additional criteria include ICA/CCA PSV ratio >4 and ICA EDV >100 cm/sec ACT 112: Negative or not required by law. Electronically signed by: Ra Bradley M.D. 06/30/2022 11:18 AM
--- NOTE | 2022-06-30 16:20 | Discharge Summary ---
Discharge Summary Date of Service June 30, 2022 Notes For Next Care Provider Medication Changes From Visit no changes Admission HPI Per Admitting Provider History obtained from patient and records. Medical history significant for nonocclusive CAD, PVD status post surgery, history TIA, bicuspid aortic valve status post bioprosthetic AVR, hypertension, hyperlipidemia, DM2 on oral medications, sarcoidosis. Patient not feeling well the last few days. Patient was watching television last night when he experienced achy transient left-sided chest pain without radiation and no other symptoms. Patient later noted tingling numbness on the face and left arm. More profound numbness on the left side from TIA attack in 2007 prompting [place] [facility] [place] Patient denies headache symptoms. No unusual neck pain. Patient compliant with medications. No unusual stress except for plowing snow yesterday. Patient does not take blood pressure at home. Patient took extra aspirin at home prior to ER evaluation. Highest SBP at the ER 190s. Patient currently comfortable. 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 Admission Exam Per Admitting Provider GENERAL: Comfortable, pleasant, no respiratory distress SKIN: Hypopigmented patches noted noted on the upper extremities, normal color, warm HEENT: [place] palpebral conjunctivae, no ptosis, minimal upper lip asymmetry, moist buccal mucosa NECK : Supple, no tenderness CHEST : CTA, no tenderness HEART : RRR, systolic murmur over precordium ABDOMEN: Some distention, nontender EXTREMITIES : No LE swelling, no LE tenderness, no other conspicuous deformities noted NEUROLOGIC : Coherent, no facial asymmetry, minimal upper lip asymmetry, gait and stance not assessed Principal Dx & Hospital Course #1 = Principal Diagnosis (1) Left-sided chest pain: (2) Facial paresthesia: (3) Paresthesia of left arm: (1) TIA (transient ischemic attack): Plan: Past history TIA Transient left-sided numbness -- CT head: no acute process -- patient unable to tolerate Brain MRI due to claustrophobia -- Carotid Doppler: 1. There is occlusion of the right internal carotid artery secondary to extensive atherosclerotic disease. Moderate left atherosclerosis without hemodynamically significant stenosis. 2. Antegrade flow is shown in the vertebral arteries. -- symptoms resolved -- Neurologist consulted possible TIA, also hypertensive on admission -- Neurologist recommending to continue usual ASA + Plavix, Lipitor ff up with Landscape [employer]fter for KANA extensive atherosclerotic disease Chest pain, ACS ruled out -- CT chest: no PE -- Troponins negative EKG no signs of acute ischemia -- Echo: no wall motion abnormalities noted, bioprosthetic valve ok -- chest pain resolved BP normalized -- likely musculoskeletal pain, occurred after cleaning snow hx PVD status post surgery bicuspid aortic valve status post bioprosthetic AVR hyperlipidemia, on statin Rx DM2 on oral medications, well-controlled as of recent hemoglobin A1c of 6.2 last August 2021 DM2 on oral medications sarcoidosis as per records DVT prophylaxis per [facility] subcu Full code Discharge Exam General- oriented x 3, not in distress, speaks in sentences with no effort or accessory muscle use Eyes- anicteric Neck- no JVD Lungs- clear breath sounds bilaterally, no rales/wheezes Heart- normal rate, regular rhythm; no murmurs Abdomen- normal bowel sounds, nondistended, soft, nontender Extremities- no pretibial edema, no calf tenderness Neuro- alert, oriented x 3; no gross focal neurologic deficits Skin- warm & dry Updated Medication List Medication Instructions Recorded Confirmed Type clopidogrel 75 mg tablet 75 mg PO DAILY #0 tabs 09/25/17 06/30/22 History ezetimibe 10 mg tablet 10 mg PO DAILY #0 tabs 09/25/17 06/30/22 History lisinopril 20 mg tablet 20 mg PO BID #0 tabs 09/25/17 06/30/22 History metformin 500 mg tablet 1,000 mg PO BID #0 tabs 09/25/17 06/30/22 History multivitamin 1 tab PO DAILY #0 tabs 09/25/17 06/30/22 History rosuvastatin 20 mg tablet 20 mg PO DAILY #0 tabs 09/25/17 06/30/22 History amlodipine 5 mg tablet 5 mg PO BID 01/01/22 06/30/22 History metoprolol tartrate 50 mg tablet 50 mg PO BID 01/01/22 06/30/22 History aspirin 81 mg tablet,delayed 81 mg PO DAILY 06/30/22 06/30/22 History release omega-3s 300 fj-swp-flb-other 1 cap PO DAILY 06/30/22 06/30/22 History [id number] oil 1,000 mg capsule ([place]ureka-3 Fish Oil) Hospital Stay Data Consultations 06/30/22 02:36 ED Decision to Admit Stat 06/30/22 06:12 Consult Cardiology Routine 06/30/22 07:52 Consult Neurology Routine Diagnostic Imagining Performed Head CT 06/29/22 23:18 CT SCAN OF THE BRAIN WITHOUT IV CONTRAST CLINICAL HISTORY: Transient ischemic attack. Left-sided facial numbness. Dizziness. COMPARISON STUDY: CT of the brain dated 11/26/2021. TECHNIQUE: Unenhanced axial CT scan of the brain is performed from the vertex to the skull base. A dose lowering technique was utilized adhering to the principles of ALARA. CT DOSE: 614.27 mGy.cm FINDINGS: Brain parenchyma: A focus of high right parietal encephalomalacia is unchanged and consistent with a remote insult. There is age-related involutional change noting mild subcortical and periventricular microangiopathic disease. There is no hemorrhage, mass effect, or evidence of acute territorial ischemia by CT criteria. Rojas-white matter differentiation is preserved. No extra-axial fluid collection is seen. Ventricles, sulci, cisterns: Prominent secondary to involutional change. Intracranial vasculature: There is atherosclerotic calcification of the cavernous carotid vertebral arteries. Calvarium: Unremarkable. Soft tissues: A 2 cm lipoma is noted in the right suboccipital musculature. Sinuses and mastoids: The visualized paranasal sinuses are clear. The mastoid air cells are well pneumatized. Orbits: The bony orbits are grossly intact. There are bilateral ocular lens implants. IMPRESSION: There is no hemorrhage, mass effect, or evidence of acute territorial ischemia by CT criteria. ACT 112: Negative or not required by law. Electronically signed by: Chapito Webb M.D. 06/30/2022 12:19 AM Chest X-Ray 06/29/22 23:19 SINGLE VIEW CHEST CLINICAL HISTORY: Left-sided chest pain. FINDINGS: An AP, portable, upright chest radiograph is compared to study dated 09/25/2017. The patient is status post midline sternotomy. The heart is enlarged noting atherosclerotic calcification of the thoracic aorta. The pulmonary vasculature is noncongested. There is mild bibasilar scarring/atelectasis. The lungs and pleural spaces are otherwise clear. No pneumothorax is seen. The skeletal structures are osteopenic. There are healed right-sided rib fractures. Advanced arthritic change is noted in the shoulders. IMPRESSION: Mild cardiomegaly with no active disease in the chest. ACT 112: Negative or not required by law. Electronically signed by: Chapito Webb M.D. 06/30/2022 12:26 AM Chest CTA 06/30/22 00:36 CT angio chest PE protocol CLINICAL HISTORY: PE TECHNIQUE: Multidetector row helical CT of the chest was performed with angiographic protocol. Coronal and sagittal reformations were obtained. Coronal and sagittal MIPS were obtained from the axial data set and were submitted for review. Automated dose lowering techniques and/or adjustment according to patient size were utilized for this exam. CT DOSE: 861.29 mGy.cm Comparison: None available at the time of this dictation. FINDINGS: Lungs and pleura: Normal. Heart and pericardium: Aortic valvular calcifications are seen. Vessels: No evidence of pulmonary embolism. 2 atherosclerotic disease is noted. Mediastinum and sterling: Unremarkable. Chest wall and lower neck: Unremarkable. Abdomen: Unremarkable. Bones: Degenerative changes in the thoracic spine. Patient is status post median sternotomy. IMPRESSION: No evidence of pulmonary embolism. ACT 112: Negative or not required by law. Electronically signed by: Ra Bradley M.D. 06/30/2022 8:01 AM Carotid Doppler Study 06/30/22 06:12 ULTRASOUND OF THE CAROTID ARTERIES CLINICAL HISTORY: tia COMPARISON: None available at the time of this dictation. TECHNIQUE: Real-time, grayscale, and color Doppler sonography of the carotid arteries is performed. Images are reviewed in the transverse and longitudinal planes. FINDINGS: The carotid arteries are patent bilaterally and demonstrate antegrade flow. There is extensive atherosclerotic plaque on the right and moderate atherosclerotic plaque on the left. Normal doppler arterial waveforms are seen throughout. Velocity measurements are listed below. Common carotid peak systolic velocity (cm/sec): RIGHT: 75 LEFT: 112 ICA peak systolic velocity (cm/sec): RIGHT: Not seen LEFT: 115 ICA/CC peak systolic ratio: RIGHT: Occluded LEFT: 1 Antegrade flow was shown in the vertebral arteries. The external carotid arteries are patent. IMPRESSION: 1. There is occlusion of the right internal carotid artery secondary to extensive atherosclerotic disease. Moderate left atherosclerosis without hemodynamically significant stenosis. 2. Antegrade flow is shown in the vertebral arteries. Society of Radiologists in Ultrasound consensus guidelines: Normal: ICA PSV is <125 cm/sec and no plaque or intimal thickening is visible sonographically additional criteria include ICA/CCA PSV ratio <2.0 and ICA EDV <40 cm/sec <50% ICA stenosis: ICA PSV is <125 cm/sec and plaque or intimal thickening is visible sonographically additional criteria include ICA/CCA PSV ratio <2.0 and ICA EDV <40 cm/sec 50-69% ICA stenosis: ICA PSV is 125-230 cm/sec and plaque is visible sonographically additional criteria include ICA/CCA PSV ratio of 2.0-4.0 and ICA EDV of 40-100 cm/sec ?70% ICA stenosis but less than near occlusion: ICA PSV is >230 cm/sec and visible plaque and luminal narrowing are seen at rojas-scale and color Doppler ultrasound (the higher the Doppler parameters lie above the threshold of 230 cm/sec, the greater the likelihood of severe disease) additional criteria include ICA/CCA PSV ratio >4 and ICA EDV >100 cm/sec ACT 112: Negative or not required by law. Electronically signed by: Ra Bradley M.D. 06/30/2022 11:18 AM Pending Results Patient Have Any Pending Studies at Discharge: No Discharge Instructions Given to Patient (Per Discharging Provider) RESUME METFORMIN ON JULY 03, 2022. THIS IS TO PREVENT KIDNEY INJURY YOU HAVE RECEIVED IV CONTRAST FOR CT SCAN OF THE CHEST. DRINK PLENTY OF FLUIDS. PLEASE CALL YOUR PRIMARY CARE PHYSICIAN OR RETURN TO THE ER IF WITH WORSENING OF SYMPTOMS, INCLUDING NUMBNESS/WEAKNESS OF BODY, CHEST PAIN, SHORTNESS OF BREATH, DIZZINESS, PALPITATIONS, ETC FOLLOW UP WITH PRIMARY CARE PHYSICIAN IN 1 WEEK. FOLLOW UP WITH CONTRACTS DIRECTOR. Total Time Total Time Spent Total Time Spent (In Minutes): > 30 minutes
--- NOTE | 2022-07-01 05:44 | Electrocardiogram Report ---
Test Reason : Blood Pressure : / mmHG Vent. Rate : 079 BPM Atrial Rate : 079 BPM P-R Int : 164 ms QRS Dur : 100 ms QT Int : 396 ms P-R-T Axes : 051 076 079 degrees QTc Int : 454 ms Normal sinus rhythm Possible Left atrial enlargement Incomplete right bundle branch block Borderline ECG When compared with ECG of 01-JAN-2022 15:37, Premature ventricular complexes are no longer Present Premature atrial complexes are no longer Present Confirmed by Jason Douglas ([id number]) on 07/01/2022 5:44:37 AM Referred By: Rob Reese Confirmed By:Jason Douglas
[2022-07-01 07:19] LABS: Estimated Average Glucose 146 mg/dl; Hemoglobin A1C 6.7 % (4.5-5.6)
== END 2022-06-30 17:07 | disposition home or self-care (01) ==
LOC: ED 22:54 → 4W 22:54
DX: Z79.82 Long term (current) use of aspirin; I25.10 Atherosclerotic heart disease of native coronary artery without angina pectoris; D86.9 Sarcoidosis, unspecified; Z95.2 Presence of prosthetic heart valve; I11.9 Hypertensive heart disease without heart failure; I65.03 Occlusion and stenosis of bilateral vertebral arteries; Z98.890 Other specified postprocedural states; I69.398 Other sequelae of cerebral infarction; Z91.013 Allergy to seafood; I65.23 Occlusion and stenosis of bilateral carotid arteries; Z79.84 Long term (current) use of oral hypoglycemic drugs; Z79.899 Other long term (current) drug therapy; Z91.030 Bee allergy status; I16.0 Hypertensive urgency; Z20.822 Contact with and (suspected) exposure to COVID-19; E11.51 Type 2 diabetes mellitus with diabetic peripheral angiopathy without gangrene; R07.9 Chest pain, unspecified; E78.5 Hyperlipidemia, unspecified; R20.2 Paresthesia of skin